=== PATIENT | female | born 2000 | race Two or more races ===

== ENCOUNTER → 2023-07-14 | Outpatient (REF) | payer BC | LOC: M SFHCPLAZ 13:04 | PROVIDERS: ATTEND Family Medicine | DX: Z11.59 Encounter for screening for other viral diseases (principal); Z13.1 Encounter for screening for diabetes mellitus; Z13.220 Encounter for screening for lipoid disorders; Z13.0 Encounter for screening for diseases of the blood and blood-forming organs and certain disorders involving the immune mechanism ==